=== PATIENT | female | born 1950 | race Caucasian/White ===

== ENCOUNTER 2024-02-09 14:35 | Outpatient (CLI) | payer MEDICARE, MEDICAID, SELFPAY ==
--- NOTE | ~2024-02-09 | MR_ITS ---
EXAMINATION: MR shoulder RT wo con DATE: 02/09/2024 15:08 INDICATION: Right shoulder pain TECHNIQUE: Magnetic resonance imaging (MRI) of the right shoulder was performed without intravenous c ontrast. Sequences included axial PD-weighted FS FSE, coronal oblique PD-weighted FS FSE, coronal obl ique T2-weighted FS FSE, sagittal PD-weighted FS FSE, and sagittal T1-weighted SE. COMPARISON: None. FINDINGS: Coracoacromial arch: The acromion undersurface is curved in morphology (type II). The coracoacromial ligament is normal. S evere acromioclavicular osteoarthritis with small inferiorly directed osteophytes which remains separ ate from the underlying subscapularis tendon by 2 mm of intervening fat. Rotator cuff: Moderate supraspinatus and mild infraspinatus tendinopathy without tear. The teres minor tendon is no rmal. There is mild subscapularis tendinopathy with very small tear along the middle third of the les ser tuberosity footplate with longitudinal split tear extending 2.2 cm medially along the otherwise i ntact appearing fibers of the distal tendon. Normal rotator cuff muscle bulk and signal. Biceps tendon, glenoid labrum and glenohumeral cartilage: Long head of the biceps tendon is normal. Small anterior to inferior labral tear beginning near the 3 :00 position and extending to the 6:30 position. There is a blisterlike intrasubstance ganglion cyst extending within the 5:00-6:00 inferior labrum. There is partial thickness chondral ulceration appear s to involve greater than 50% the cartilage thickness but without degenerative subchondral changes al rcistian the anterior half of the glenoid. Additional partial thickness cartilage loss with smooth chondra l surface and without degenerative subchondral changes along the humeral head with cephalad predomina nce. Fluid: Small glenohumeral joint effusion with mild synovitis at the axillary recess. Additional small amount of fluid and tenosynovitis along the long head biceps tendon sheath. No loose osteochondral bodies. No abnormal fluid signal in the subacromial/subdeltoid bursa to suggest bursitis. Bones: Bone alignment is normal. No fracture or pathologic marrow replacing process. There is mild cystic ch wing along the lesser tuberosity likely related to chronic rotator cuff disease. IMPRESSION: 1. Moderate supraspinatus and mild infraspinatus tendinopathy without tear. 2. Mild tendinopathy and small intrasubstance longitudinal split tear at the central portion of the d istal subscapularis tendon. 3. Mild glenohumeral osteoarthritis with tear of the anterior to inferior glenoid labrum. 4. Small glenohumeral joint effusion and mild bicipital tenosynovitis. 5. Severe acromioclavicular osteoarthritis. Reviewed, dictated and finalized at location A. IMPRESSION: 1. Moderate supraspinatus and mild infraspinatus tendinopathy without tear. 2. Mild tendinopathy and small intrasubstance longitudinal split tear at the ce ntral portion of the distal subscapularis tendon. 3. Mild glenohumeral osteoarthritis with tear of the anterior to inferior gleno id labrum. 4. Small glenohumeral joint effusion and mild bicipital tenosynovitis. 5. Severe acromioclavicular osteoarthritis.
== END 2024-02-09 14:36 ==
PROVIDERS: PCP Physician Assistant; Visit Provider Physician Assistant
DX: M19.011 Primary osteoarthritis, right shoulder (principal); M25.411 Effusion, right shoulder; M75.101 Unspecified rotator cuff tear or rupture of right shoulder, not specified as traumatic
CPT/HCPCS: 73221